=== PATIENT | male | born 1970 | race Caucasian/White ===

== ENCOUNTER 2016-11-05 09:42 | Emergency (ER) | payer OTHER ==
[2016-11-05] MEDS ORDERED: Fluor-I-Strip/Ful-Flo OP ONE ×2 (09:55→10:00)
[2016-11-05] MEDS ORDERED: Tetcaine HCl OPHTHALMIC OP ONE ×2 (09:55→10:00)
[2016-11-05] MEDS ORDERED: Eye-Stream Solution ONE (09:56)
[2016-11-05] MEDS ORDERED: Tobrex EYE DROPS 5 ML OP ONE ×2 (10:00→10:11)
[2016-11-05] MEDS ORDERED: Acular OPTH SOL OP ONE ×2 (10:00→10:11)
--- NOTE | 2016-11-05 10:07 | ERPHSYRPT ---
- History of Present Illness Time Seen by Provider: 11/05/16 09:45 Source: patient Exam Limitations: no limitations Physician History: patient at work working under a car when he accidently got something in his left eye; it was washed out and felt better; he was awakended during the night with pain and d/c from his left eye; no new injury; tetanus current; no fever; some photophobia; no loss of vision; pain increased when closes his eye Timing/Duration: today (increased pain and d/c), yesterday (symptons worse), day (s) (3 onset FB) Location: left eye Severity: severe Apparent Injury: possibly Associated Symptoms: pain, sensitivity to light, redness, matting, eyelid swelling, foreign body sensation Visual Assistive Devices: None Chemical Exposure: No Trauma: No Welding Arc/Tanning Bed Exposure: No Allergies/Adverse Reactions: No Known Drug Allergies Allergy (Verified 11/05/16 10:06) Home Medications: Paroxetine HCl [Paxil] 20 mg PO HS 03/05/16 [History] Pramipexole Di-HCl 0.5 mg [Mirapex 0.5 MG Tablet] 0.5 mg PO HS 03/05/16 [ History] Hx Tetanus, Diphtheria Vaccination/Date Given: Yes (up to date) Hx Influenza Vaccination/Date Given: No Hx Pneumococcal Vaccination/Date Given: No - Review of Systems Constitutional: No Symptoms Eyes: Discharge, Eye Pain, Eye Redness, Photophobia, Tearing, Foreign Body Sensation Ears, Nose, & Throat: No Symptoms Respiratory: No Cough, No Dyspnea, No Wheezing Cardiac: No Chest Pain, No Edema, No Palpitations Abdominal/Gastrointestinal: No Abdominal Pain, No Nausea, No Vomiting Genitourinary Symptoms: No Symptoms Musculoskeletal: No Symptoms Skin: No Symptoms Neurological: No Symptoms Psychological: No Symptoms - Past Medical History Pertinent Past Medical History: Yes Psycho-Social History: Anxiety, Depression Other Medical History: restless leg syndrome - Past Surgical History Past Surgical History: Yes Musculoskeletal: Orthopedic Surgery Other Surgical History: back surgery - Social History Smoking Status: Current every day smoker How long have you smoked: 30 Exposure to second hand smoke: No Alcohol Use: Socially Drug Use: none Patient Lives Alone: Yes Significant Family History: no pertinent family hx - Nursing Vital Signs Nursing Vital Signs: Initial Vital Signs Temperature 98.3 F Temperature Source Oral Pulse Rate 84 Respiratory Rate 16 Blood Pressure [Right Arm] 130/75 Pain Intensity 8 - Physical Exam General Appearance: moderate distress, alert Vision Acuity Degree Evaluation Phase: Corrected Vision Acuity Right Eye: 20/20 Vision Acuity Left Eye: 20/30 Eye Exam: right eye: normal inspection, left eye: conjunctival inflammation, erythema, exudate, eyelid inflammation, bilateral eye: PERRL, EOMI Ears, Nose, Throat Exam: normal ENT inspection, TMs normal, pharynx normal, moist mucous membranes Neck Exam: normal inspection, non-tender, supple, full range of motion, No meningismus, No JVD Extremity Exam: normal inspection, normal range of motion Neurologic: alert, oriented x 3, cooperative, laboratory machinist II-XII nml as tested, normal mood/affect, nml cerebellar function, nml station & gait Skin Exam: normal color, warm, dry Procedures - Eye Procedure Tetracaine Drops Administered: Yes Eye FB Removal: removal w/ cotton swab Remaining Material after FB Removal: none Eye Irrigated w/ Saline (ccs): 10 Antibiotic Oinment/Drps Admin: left eye Progress: improved; no uptake of stain - Course Nursing assessment & vital signs reviewed: Yes Ordered Tests: Active Orders 24 hr Category Date Time Status Re-Check Vital Signs STAT Care 11/05/16 10:00 Active Visual Acuity STAT Care 11/05/16 10:00 Active Medication Summary Discontinued Medications Generic Name Dose Route Start Last Admin Trade Name Adin PRN Reason Stop Dose Admin Eye Irrigation Solution Confirm 11/05/16 09:56 Eye-Stream Solution Administered 11/05/16 09:57 Dose 30 ml .ROUTE .STK-MED ONE Fluorescein Sodium Confirm 11/05/16 09:55 Tzmdm-A-Dklid/Ful-Chris Administered 11/05/16 09:56 Dose 1 mg OP .STK-MED ONE Fluorescein Sodium 1 mg 11/05/16 10:00 11/05/16 10:15 Bskbk-T-Xbieo/Ful-Chris OP 11/05/16 10:01 1 mg STAT ONE Administration Ketorolac Tromethamine 5 ml 11/05/16 10:00 11/05/16 10:21 Acular Opth Kristen OP 11/05/16 10:01 5 ml STAT ONE Administration Ketorolac Tromethamine Confirm 11/05/16 10:11 Acular Opth Kristen Administered 11/05/16 10:12 Dose 5 ml OP .STK-MED ONE Tetracaine HCl Confirm 11/05/16 09:55 Tetcaine Hcl Ophthalmic Administered 11/05/16 09:56 Dose 2 ml OP .STK-MED ONE Tetracaine HCl 2 ml 11/05/16 10:00 11/05/16 10:15 Tetcaine Hcl Ophthalmic OP 11/05/16 10:01 2 ml STAT ONE Administration Tobramycin Sulfate 5 ml 11/05/16 10:00 11/05/16 10:14 Tobrex Eye Drops 5 Ml OP 11/05/16 10:01 5 ml STAT ONE Administration Tobramycin Sulfate Confirm 11/05/16 10:11 Tobrex Eye Drops 5 Ml Administered 11/05/16 10:12 Dose 5 ml OP .STK-MED ONE - Progress Progress: improved (after meds) Progress Note: 11/05/16 10:06 eye numbed; stained; no uptake; lids everted; no gross FB seen; swept with q tip ; irrigated; ATBs adn pain meds given; visual acuity pending 11/05/16 10:27 patient given eye drops with treatment plan and instructions Counseled pt/family regarding: diagnosis, need for follow-up - Departure Time of Disposition: 10:28 Departure Disposition: Home Clinical Impression: Acute conjunctivitis, left eye Condition: Stable Critical Care Time: No Referrals: MARIIA MARR, [Primary Care Provider] - Instructions: Eye Pain, Get a Foreign Body Out of Your Eye Additional Instructions: Tobrex Opthalmic drops apply 2 drops to left eye three times a day for 5 days ketoralac eye ddrops apply 2 drops left eye every 8 hrs as needed for 2-3 days avoid bright light and wind follow up with lmd as needed Follow-up with family doctor as directed. Call for appointment. Return if any problems. If you smoke please stop. Call or follow up with your family doctor for assistance if you need it to stop. Please wear your seatbelt when driving. Have a nice day. Thank you for allowing us to participate in your care today. :o) Dr Maximo Chávez
[2016-11-05 10:39] VITALS: O2SAT 96
[2016-11-05 11:04] VITALS: BP 131/72; PULSE 81
[2016-11-05] MEDS ORDERED: Eye-Stream Solution OP ONE (12:58)
== END 2016-11-05 11:04 | disposition home or self-care (01) ==
LOC: ED 09:42
DX: H10.32 Unspecified acute conjunctivitis, left eye (principal); X58.XXXA Exposure to other specified factors, initial encounter; Y92.59 Other trade areas as the place of occurrence of the external cause
CPT/HCPCS: 80307; 99283

== ENCOUNTER 2017-01-03 01:04 | Observation (INO) | payer OTHER ==
[2017-01-03] MEDS ORDERED: Sodium Chloride 0.9% 1000 ML 1,000 ML IV STA (01:39)
[2017-01-03] MEDS ORDERED: DUONEB 0.5-3 MG/3 ml Neb IH ONE ×2 (01:44→01:51)
--- NOTE | 2017-01-03 01:44 | ERPHSYRPT ---
- History of Present Illness Time Seen by Provider: 01/03/17 01:25 Source: patient Exam Limitations: clinical condition Physician History: PATIENT COMPLAINS OF FEELING DEPRESSED STATING HE WANTS TO GO ASLEEP, INGESTED 10 TABLETS MIRAPEX AND 10 TABLETS PAXIL WITH ALCOHOL PRIOR TO ARRIVAL. PATIENT ALSO COMPLAINS OF A PRODUCTIVE WITH CHEST CONGESTION. RECENTLY TREATED FOR BRONCHITIS WITH STEROIDS AND ANTIBIOTIC ZITHROMAX. Severity of Symptoms-Max: moderate Severity of Symptoms-Current: moderate Suicidal thoughts: ingestion Associated Symptoms: frustrated, ingestion Previous symptoms: same symptoms as today, other (previous overdose with pills in the past) Allergies/Adverse Reactions: No Known Drug Allergies Allergy (Verified 11/05/16 10:06) Home Medications: Paroxetine HCl [Paxil] 20 mg PO HS 03/05/16 [History] Pramipexole Di-HCl 0.5 mg [Mirapex 0.5 MG Tablet] 0.5 mg PO HS 03/05/16 [ History] Hx Tetanus, Diphtheria Vaccination/Date Given: Yes (up to date) Hx Influenza Vaccination/Date Given: No Hx Pneumococcal Vaccination/Date Given: No - Past Medical History Pertinent Past Medical History: Yes Psycho-Social History: Anxiety, Depression Other Medical History: restless leg syndrome - Past Surgical History Past Surgical History: Yes Musculoskeletal: Orthopedic Surgery Other Surgical History: back surgery - Social History Smoking Status: Current every day smoker How long have you smoked: 30 Exposure to second hand smoke: No Alcohol Use: Socially Drug Use: none Patient Lives Alone: Yes Significant Family History: no pertinent family hx - Review of Systems Constitutional: No Fever, No Chills Eyes: No Symptoms Ears, Nose, & Throat: No Symptoms Respiratory: Cough, No Dyspnea Cardiac: No Symptoms, No Chest Pain, No Edema, No Syncope Abdominal/Gastrointestinal: No Symptoms, No Abdominal Pain, No Nausea, No Vomiting, No Diarrhea Genitourinary Symptoms: No Symptoms, No Dysuria Musculoskeletal: No Symptoms, No Back Pain, No Neck Pain Skin: No Symptoms, No Rash Neurological: No Dizziness, No Focal Weakness, No Sensory Changes Psychological: No Symptoms Endocrine: No Symptoms All Other Systems: Reviewed and Negative - Nursing Vital Signs Nursing Vital Signs: Initial Vital Signs Pulse Rate 84 Respiratory Rate 16 Blood Pressure [] 134/83 Pain Intensity 0 - Physical Exam General Appearance: no apparent distress Eyes, Ears, Nose, Throat Exam: normal ENT inspection, moist mucous membranes Neck Exam: normal inspection, non-tender, supple Respiratory Exam: normal breath sounds, lungs clear, No respiratory distress Cardiovascular Exam: regular rate/rhythm, No edema Gastrointestinal/Abdominal Exam: soft, No tenderness, No distention Extremities Exam: normal inspection, normal range of motion, No evidence of injury, No edema Peripheral Pulses: carotid (R): 2+, carotid (L): 2+, femoral (R): 2+, femoral (L ): 2+, dorsalis-pedis (R): 2+, dorsalis-pedis (L): 2+ Current Suicidality: denies suicide plan Neurological Exam: alert, certified optician II-XII nml as tested, oriented x 3 Appearance: appropriate appearance, appropriate insight Behavior/Eye Contact/Speech: alert & cooperative Skin Exam: normal color, warm, dry, No rash SpO2: 98 Oxygen Delivery: Room Air - Course EKG Interpreted by Me: RATE, Sinus Rhythm, NORMAL AXIS - Radiology Exams Chest X-ray Interpretation: Reviewed by me, Teleradiologist Report Ordered Tests: Active Orders 24 hr Category Date Time Status Up With Assistance ROUTINE Activity 01/03/17 03:47 Active Admission/Status Order ROUTINE Care 01/03/17 03:37 Active Call Admit Doctor for Orders ON ADMISSION Care 01/03/17 03:43 Active Floral Specialist STAT Care 01/03/17 01:39 Active Code Status Order ROUTINE Care 01/03/17 03:37 Active Code Status Order ROUTINE Care 01/03/17 03:47 Active EKG-ER Only STAT Care 01/03/17 01:39 Active IV Care Q6H Care 01/03/17 03:37 Active IV Insertion STAT Care 01/03/17 01:39 Active Neuro Checks Q4H Care 01/03/17 03:47 Active Pulse Oximetry (ED) STAT Care 01/03/17 01:39 Active Vital Signs Q4H Care 01/03/17 03:37 Active Low Sodium Diet 01/03/17 Breakfast Active CHEST 1 VIEW (PORTABLE) Stat Exams 01/03/17 01:40 Taken ACETAMINOPHEN Stat Lab 01/03/17 01:59 Completed ACETAMINOPHEN Stat Lab 01/03/17 03:37 Received BLOOD CULTURE Stat Lab 01/03/17 02:04 Received CBC W DIFF Stat Lab 01/03/17 01:59 Completed CMP Stat Lab 01/03/17 01:59 Completed Ethyl Alcohol,Urine Stat Lab 01/03/17 01:59 Completed Manual Differential NC Stat Lab 01/03/17 01:59 Completed SALICYLATE Stat Lab 01/03/17 01:59 Completed SALICYLATE Stat Lab 01/03/17 03:37 Received UA W/ MICROSCOPIC Stat Lab 01/03/17 02:04 Completed Urine Triage Profile Stat Lab 01/03/17 02:04 Completed Oxygen NASAL CANNULA 2 lpm RT 01/03/17 03:47 Active Pulse Oximetry CONTINUOUS RT 01/03/17 03:48 Active Respiratory Nebulizer STAT RT 01/03/17 01:44 Completed Transfer Order Routine Transfer 01/03/17 03:36 Ordered Medication Summary Generic Name Dose Route Start Last Admin Trade Name Freq PRN Reason Stop Dose Admin Acetaminophen 650 mg 01/03/17 03:47 Tylenol 325 Mg PO 02/02/17 03:46 Q4H PRN PRN PAIN AND/OR FEVER Albuterol/Ipratropium 3 ml 01/03/17 03:47 Duoneb 0.5-3 Mg/3 Ml Neb IH 02/02/17 03:46 Q4HPRN PRN SHORTNESS OF BREATH/WHEEZING Famotidine 20 mg 01/03/17 10:00 Pepcid 20 Mg Vial IV 02/02/17 09:59 Q12HT [place] Ceftriaxone Sodium/Dextrose 50 mls @ 100 mls/hr 01/03/17 10:00 Rocephin 1 Gm-D5w 50 Ml Bag IV 02/02/17 09:59 Q24H10 [place] Sodium Chloride 1,000 mls @ 100 mls/hr 01/03/17 03:45 Sodium Chloride 0.9% 1000 Ml IV 02/02/17 03:44 .Q10H [place] Ceftriaxone Sodium/Dextrose 50 mls @ 100 mls/hr 01/03/17 03:52 Rocephin 1 Gm-D5w 50 Ml Bag IV 01/03/17 04:21 STAT ONE Discontinued Medications Generic Name Dose Route Start Last Admin Trade Name Freq PRN Reason Stop Dose Admin Albuterol/Ipratropium 3 ml 01/03/17 01:44 01/03/17 01:51 Duoneb 0.5-3 Mg/3 Ml Neb IH 01/03/17 01:45 3 ml STAT ONE Administration Albuterol/Ipratropium Confirm 01/03/17 01:51 Duoneb 0.5-3 Mg/3 Ml Neb Administered 01/03/17 01:52 Dose 3 ml IH .STK-MED ONE Sodium Chloride 1,000 mls @ 999 mls/hr 01/03/17 01:39 01/03/17 02:15 Sodium Chloride 0.9% 1000 Ml IV 01/03/17 02:39 999 mls/hr .Q1H1M STA Administration Sodium Chloride Confirm 01/03/17 02:11 Sodium Chloride 0.9% 1000 Ml Administered 01/03/17 02:12 Dose 1,000 mls @ ud .ROUTE .STK-MED ONE Ceftriaxone Sodium/Dextrose Confirm 01/03/17 03:48 Rocephin 1 Gm-D5w 50 Ml Bag Administered 01/03/17 03:49 Dose 50 mls @ ud IV .STK-MED ONE Lab/Rad Data: Laboratory Result Diagrams 01/03/17 01:59 01/03/17 01:59 Laboratory Results 01/03/17 01/03/17 01/03/17 Range/Units 02:04 02:04 01:59 WBC (4.0-10.5) K/mm3 RBC (4.1-5.6) M/mm3 Hgb (12.5-18.0) gm/dl Hct (42-50) % MCV (78-100) fl MCH (26-32) pg MCHC (32-36) g/dl RDW (11.5-14.0) % Plt Count (150-450) K/mm3 MPV (6-9.5) fl Segmented Neutrophils (36.-66.) % Lymphocytes (Manual) (24-44) % Monocytes (Manual) (0.0-12.0) % Eosinophils (Manual) (0.00-3.0) % Basophils (Manual) (0.0-1.0) % Differential Comment Atypical Lymphocytes % Platelet Estimate (NORMAL) Sodium (136-145) mEq/L Potassium (3.5-5.1) mEq/L Chloride (98-107) mEq/L Carbon Dioxide (21-32) mEq/L Anion Gap (5-15) MEQ/L BUN (9-20) mg/dL Creatinine (0.55-1.30) mg/dl Estimated GFR ML/MIN Glucose (70-110) MG/DL Calcium (8.5-10.1) mg/dL Total Bilirubin (0.2-1.0) mg/dL AST (15-37) U/L ALT (12-78) U/L Alkaline Phosphatase (46-116) U/L Serum Total Protein (6.4-8.2) gm/dL Albumin (3.4-5.0) g/dL Ur Collection Type VOID Urine Color YELLOW (YELLOW) Urine Appearance CLEAR (CLEAR) Ur Specific [place] 1.020 (1.005-1.025) Urine Protein NEGATIVE (Negative) Urine Glucose (UA) NEGATIVE (NEGATIVE) mg/dL Urine Ketones NEGATIVE (NEGATIVE) Urine Nitrite NEGATIVE (NEGATIVE) Urine Bilirubin NEGATIVE (NEGATIVE) Urine Urobilinogen 0.2 (0-1) mg/dL Urine WBC (Auto) NEGATIVE (NEGATIVE) Urine RBC (Auto) TRACE-LYSED (0-5) Andrew/ul Urine Microscopic RBC 2-5 (0-2) /HPF Urine Microscopic WBC 0-2 (0-5) /HPF Ur Epithelial Cells RARE (FEW) /HPF Urine Bacteria RARE (NEGATIVE) /HPF Salicylates (2.8-20.0) mg/dl Urine Opiates Level NEG. (NEGATIVE) Ur Methadone NEG. (NEGATIVE) Acetaminophen (10-30) ug/ml Urine Barbiturates NEG. (NEGATIVE) Ur Phencyclidine (PCP) NEG. (NEGATIVE) Urine Amphetamine NEG. (NEGATIVE) U Benzodiazepine Level NEG. (NEGATIVE) Urine Cocaine NEG. (NEGATIVE) Urine Marijuana (THC) POS. (NEGATIVE) Urine pH 5.5 5.5 (3-8.5) Urine Ethyl Alcohol < 3 (0.00-20) mg/dl Specimen Received 01/03/17 0130 01/03/17 01/03/17 Range/Units 01:59 01:59 WBC 12.5 H (4.0-10.5) K/mm3 RBC 5.64 H (4.1-5.6) M/mm3 Hgb 16.4 (12.5-18.0) gm/dl Hct 48.7 (42-50) % MCV 86.3 (78-100) fl MCH 29.0 (26-32) pg MCHC 33.7 (32-36) g/dl RDW 14.7 H (11.5-14.0) % Plt Count 198 (150-450) K/mm3 MPV 9.5 (6-9.5) fl Segmented Neutrophils 65 (36.-66.) % Lymphocytes (Manual) 15 L (24-44) % Monocytes (Manual) 4 (0.0-12.0) % Eosinophils (Manual) 3 (0.00-3.0) % Basophils (Manual) 1 (0.0-1.0) % Differential Comment NORMAL Atypical Lymphocytes 12 % Platelet Estimate NORMAL (NORMAL) Sodium 143 (136-145) mEq/L Potassium 3.8 (3.5-5.1) mEq/L Chloride 108 H (98-107) mEq/L Carbon Dioxide 25.3 (21-32) mEq/L Anion Gap 13.8 (5-15) MEQ/L BUN 15 (9-20) mg/dL Creatinine 0.98 (0.55-1.30) mg/dl Estimated GFR > 60 ML/MIN Glucose 108 (70-110) MG/DL Calcium 8.3 L (8.5-10.1) mg/dL Total Bilirubin 0.2 (0.2-1.0) mg/dL AST 34 (15-37) U/L ALT 61 (12-78) U/L Alkaline Phosphatase 99 (46-116) U/L Serum Total Protein 7.2 (6.4-8.2) gm/dL Albumin 3.7 (3.4-5.0) g/dL Ur Collection Type Urine Color (YELLOW) Urine Appearance (CLEAR) Ur Specific [place] (1.005-1.025) Urine Protein (Negative) Urine Glucose (UA) (NEGATIVE) mg/dL Urine Ketones (NEGATIVE) Urine Nitrite (NEGATIVE) Urine Bilirubin (NEGATIVE) Urine Urobilinogen (0-1) mg/dL Urine WBC (Auto) (NEGATIVE) Urine RBC (Auto) (0-5) Andrew/ul Urine Microscopic RBC (0-2) /HPF Urine Microscopic WBC (0-5) /HPF Ur Epithelial Cells (FEW) /HPF Urine Bacteria (NEGATIVE) /HPF Salicylates 3.4 (2.8-20.0) mg/dl Urine Opiates Level (NEGATIVE) Ur Methadone (NEGATIVE) Acetaminophen < 2.0 L (10-30) ug/ml Urine Barbiturates (NEGATIVE) Ur Phencyclidine (PCP) (NEGATIVE) Urine Amphetamine (NEGATIVE) U Benzodiazepine Level (NEGATIVE) Urine Cocaine (NEGATIVE) Urine Marijuana (THC) (NEGATIVE) Urine pH (3-8.5) Urine Ethyl Alcohol (0.00-20) mg/dl Specimen Received - Progress Progress Note: 01/03/17 03:POISON CONTROL CALLED, PATIENT GIVEN IV FLUID BOLUS 1 LITER, BOLUS, GIVEN ROCEPHIN 1GM IVPB AND DUO NEB AEROSOL TX 01/03/17 03:16 Discussed with : Osmar Monaco Will see patient in: hospital (observation) (AT 0320 FOR ICU OBSERVATION) - Departure Time of Disposition: 03:45 Departure Disposition: Observation Clinical Impression: ATTEMPTED DRUG OVERDOSE, MAJOR DEPRESSION, ACUTE BRONCHITIS Condition: Stable Critical Care Time: No Referrals: MARIIA MARR DO [Primary Care Provider] -
[2017-01-03 02:02] LABS: Mean Cell Volume 86.3 fl (78-100); Mean Platelet Volume 9.5 fl (6-9.5); Platelet Count 198 K/mm3 (150-450); Red Blood Count 5.64 M/mm3 (4.1-5.6); Red Cell Distribution Width 14.7 % (11.5-14.0); White Blood Count 12.5 K/mm3 (4.0-10.5)
[2017-01-03] MEDS ORDERED: Sodium Chloride 0.9% 1000 ML 1,000 ML ONE (02:11)
[2017-01-03 02:22] LABS: ALBUMIN 3.7 g/dL (3.4-5.0); ALKALINE PHOSPHATASE 99 U/L (46-116); ANION GAP 13.8 MEQ/L (5-15); BILIRUBIN,TOTAL 0.2 mg/dL (0.2-1.0); BLOOD UREA NITROGEN 15 mg/dL (9-20); CHLORIDE 108 mEq/L (98-107); Carbon Dioxide 25.3 mEq/L (21-32); Glucose 108 MG/DL (70-110); Potassium 3.8 mEq/L (3.5-5.1); SGOT/AST 34 U/L (15-37); SGPT/ALT 61 U/L (12-78); SODIUM 143 mEq/L (136-145); Total Protein 7.2 gm/dL (6.4-8.2)
[2017-01-03 02:23] LABS: Bacteria RARE /HPF (NEGATIVE); COMPLETE URINE MICROSCOPIC? YES; Collection Type VOID; Epithelial Cells RARE /HPF (FEW); Ph 5.5 (5-6); WBC 0-2 /HPF (0-5)
[2017-01-03 02:24] LABS: ACETAMINOPHEN < 2.0 ug/ml (10-30)
[2017-01-03 02:55] LABS: ATYPICAL LYMPHS 12 %; Basophil 1 % (0.0-1.0); Eosinophil 3 % (0.00-3.0); Platelet Estimate NORMAL (NORMAL); Total Cells Counted 100
[2017-01-03] MEDS ORDERED: Sodium Chloride 0.9% 1000 ML 1,000 ML IV SCH (03:45)
[2017-01-03] MEDS ORDERED: DUONEB 0.5-3 MG/3 ml Neb IH PRN (03:47)
[2017-01-03] MEDS ORDERED: TYLENOL 325 MG PO PRN (03:47)
[2017-01-03] MEDS ORDERED: ROCEPHIN 1 Gm-D5w 50 ml Bag** 50 ML IV ONE ×2 (03:48→03:52)
[2017-01-03 04:01] LABS: ACETAMINOPHEN < 2.0 ug/ml (10-30)
[2017-01-03] MEDS ORDERED: Zofran 4 MG/2 ML VIAL IV PRN (07:46)
--- NOTE | 2017-01-03 08:51 | XRAY ---
Indication: Cough. Comparison: None Portable chest slightly underinflated crowding the lung bases. Remaining heart, lungs, and bony thorax unremarkable.
[2017-01-03] MEDS ORDERED: Pepcid 20 MG VIAL IV SCH (10:00)
[2017-01-03 12:58] VITALS: BP 135/78; PULSE 87; O2SAT 97
--- NOTE | 2017-01-03 13:20 | PCM.SSS ---
History of Present Illness - Chief Complaint Chief Complaint: Shortness of Breath for 1 day and took 10 mirapex and 10 paxil History of Present Illness: Mr.COX ACOSTA is a 46 year old male.PATIENT COMPLAINS OF FEELING DEPRESSED STATING HE WANTS TO GO ASLEEP, INGESTED 10 TABLETS MIRAPEX AND 10 TABLETS PAXIL WITH ALCOHOL PRIOR TO ARRIVAL. PATIENT ALSO COMPLAINS OF A PRODUCTIVE WITH CHEST CONGESTION. RECENTLY TREATED FOR BRONCHITIS WITH STEROIDS AND ANTIBIOTIC ZITHROMAX. - Review of Systems Constitutional: No Fever, No Chills Eyes: No Symptoms Ears, Nose, & Throat: No Symptoms Respiratory: No Cough, No Short Of Breath Cardiac: No Chest Pain, No Edema, No Syncope Abdominal/Gastrointestinal: No Abdominal Pain, No Nausea, No Vomiting, No Diarrhea Genitourinary Symptoms: No Dysuria Musculoskeletal: No Back Pain, No Neck Pain Skin: No Symptoms, No Rash Neurological: No Dizziness, No Focal Weakness, No Sensory Changes Psychological: Anxiety, Depression Endocrine: No Symptoms Hematologic/Lymphatic: No Symptoms Immunological/Allergic: No Symptoms Medications & Allergies Home Medications: Home Medication List Paroxetine HCl [Paxil] 20 mg PO HS 03/05/16 [History Confirmed 01/03/17] Pramipexole Di-HCl 0.5 mg [Mirapex 0.5 MG Tablet] 0.5 mg PO HS 03/05/16 [ History Confirmed 01/03/17] Allergies/Adverse Reactions: Allergies Allergy/AdvReac Type Severity Reaction Status Date / Time No Known Drug Allergies Allergy Verified 11/05/16 10:06 - Past Medical History Past Medical History: Yes Pyscho-Social History: Anxiety, Depression Comment: restless leg syndrome - Past Surgical History Past Surgical History: Yes Neuro Surgical History: No Pertinent History Cardiac History: No Pertinent History Respiratory Surgery: No Pertinent History GI Surgical History: No Pertinent History Genitourinary Surgical Hx: No Pertinent History Musculskeletal Surgical Hx: Orthopedic Surgery Male Surgical History: No Pertinent History Other Surgical History: back surgery - Social History Smoking Status: Current every day smoker How long have you smoked: 29 years Exposure to second hand smoke: Yes Alcohol: None Drug Use: none Significant Family History: no pertinent family hx - Physical Exam Vital Signs: Vital Signs - 24 hr Temp Pulse Resp BP Pulse Ox 01/03/17 12:00 98.1 F 87 18 135/78 97 01/03/17 08:00 98.0 F 93 H 18 149/94 98 01/03/17 04:30 88 19 97 01/03/17 04:17 97.4 F 92 H 19 130/90 96 General Appearance: no apparent distress, alert Neurologic Exam: alert, oriented x 3, cooperative, normal mood/affect, nml cerebellar function, nml station & gait, sensation nml, No motor deficits Eye Exam: PERRL/EOMI, eyes nml inspection Ears, Nose, Throat Exam: normal ENT inspection, TMs normal, pharynx normal, moist mucous membranes Neck Exam: normal inspection, non-tender, supple, full range of motion Respiratory Exam: normal breath sounds, lungs clear, No respiratory distress Cardiovascular Exam: regular rate/rhythm, normal heart sounds, normal peripheral pulses Gastrointestinal/Abdomen Exam: soft, normal bowel sounds, No tenderness, No mass Back Exam: normal inspection, normal range of motion, No CVA tenderness, No vertebral tenderness Extremity Exam: normal inspection, normal range of motion, pelvis stable Skin Exam: normal color, warm, dry, No rash Lymphatic Exam: No adenopathy Results - Other Procedures and Tests Respiratory Therapy 01/03/17 03:47 Oxygen NASAL CANNULA 2 lpm 01/03/17 04:34 Respiratory Nebulizer Assessment/Plan (1) Major depression Current Visit: Yes Status: Chronic Qualifiers: Major depression recurrence: recurrent Active/Remission status: currently active Psychotic features: without psychotic features Code(s): F32.9 - MAJOR DEPRESSIVE DISORDER, SINGLE EPISODE, UNSPECIFIED (2) Suicide attempt by multiple drug overdose Current Visit: Yes Status: Acute Qualifiers: Encounter type: initial encounter Qualified Code(s): T50.902A - Poisoning by unspecified drugs, medicaments and biological substances, intentional self- harm, initial encounter Code(s): T50.902A - POISONING BY UNSP DRUG/MEDS/BIOL SUBST, SELF-HARM, INIT Hospital Summary - Hospital Course Hospital Course: Chief Complaint Diagnosis Shortness of Breath Allergies Allergy/AdvReac Type Severity Reaction Status Date / Time No Known Drug Allergies Allergy Verified 11/05/16 10:06 Vital Signs (Last 24 hours) Temp Pulse Resp BP Pulse Ox 01/03/17 12:00 98.1 F 87 18 135/78 97 01/03/17 08:00 98.0 F 93 H 18 149/94 98 01/03/17 04:30 88 19 97 01/03/17 04:17 97.4 F 92 H 19 130/90 96 01/03/17 03:53 98 01/03/17 02:53 84 16 134/83 94 L 01/03/17 02:19 94 L 01/03/17 02:18 84 16 140/78 94 L 01/03/17 01:51 84 17 96 01/03/17 01:36 88 16 140/86 98 Current Medications Generic Name Dose Route Start Last Admin Trade Name Freq PRN Reason Stop Dose Admin Acetaminophen 650 mg 01/03/17 03:47 Tylenol 325 Mg PO 02/02/17 03:46 Q4H PRN PRN PAIN AND/OR FEVER Albuterol/Ipratropium 3 ml 01/03/17 03:47 Duoneb 0.5-3 Mg/3 Ml Neb IH 02/02/17 03:46 Q4HPRN PRN SHORTNESS OF BREATH/WHEEZING Famotidine 20 mg 01/03/17 10:00 01/03/17 11:16 Pepcid 20 Mg Vial IV 02/02/17 09:59 20 mg Q12HT KELTON Administration Ceftriaxone Sodium/Dextrose 50 mls @ 100 mls/hr 01/03/17 22:00 Rocephin 1 Gm-D5w 50 Ml Bag IV 02/02/17 21:59 Q24H22 KELTON Sodium Chloride 1,000 mls @ 100 mls/hr 01/03/17 03:45 01/03/17 05:41 Sodium Chloride 0.9% 1000 Ml IV 02/02/17 03:44 100 mls/hr .Q10H KELTON Administration Ondansetron HCl 4 mg 01/03/17 07:46 01/03/17 08:06 Zofran 4 Mg/2 Ml Vial IV 02/02/17 07:45 4 mg Q6H PRN PRN Administration NAUSEA/VOMITING Discontinued Medications Generic Name Dose Route Start Last Admin Trade Name Freq PRN Reason Stop Dose Admin Albuterol/Ipratropium 3 ml 01/03/17 01:44 01/03/17 01:51 Duoneb 0.5-3 Mg/3 Ml Neb IH 01/03/17 01:45 3 ml STAT ONE Administration Albuterol/Ipratropium Confirm 01/03/17 01:51 Duoneb 0.5-3 Mg/3 Ml Neb Administered 01/03/17 01:52 Dose 3 ml IH .STK-MED ONE Sodium Chloride 1,000 mls @ 999 mls/hr 01/03/17 01:39 01/03/17 02:15 Sodium Chloride 0.9% 1000 Ml IV 01/03/17 02:39 999 mls/hr .Q1H1M STA Administration Sodium Chloride Confirm 01/03/17 02:11 Sodium Chloride 0.9% 1000 Ml Administered 01/03/17 02:12 Dose 1,000 mls @ ud .ROUTE .STK-MED ONE Ceftriaxone Sodium/Dextrose Confirm 01/03/17 03:48 Rocephin 1 Gm-D5w 50 Ml Bag Administered 01/03/17 03:49 Dose 50 mls @ ud IV .STK-MED ONE Ceftriaxone Sodium/Dextrose 50 mls @ 100 mls/hr 01/03/17 03:52 01/03/17 03:56 Rocephin 1 Gm-D5w 50 Ml Bag IV 01/03/17 04:21 100 mls/hr STAT ONE Administration Intake & Output (Last 24 hours) 01/01/17 01/02/17 01/03/17 01/04/17 11:59 11:59 11:59 11:59 Intake Total 450 Output Total 300 Balance 150 Weight 91.1 kg Microbiology Results (Last 24 hours) 01/03/17 02:04 Blood - Pending 01/03/17 02:04 Blood Blood Culture - Pending 01/03/17 01:59 Blood - Pending 01/03/17 01:59 Blood Blood Culture - Pending Laboratory Results (Last 24 hours) 01/03/17 01/03/17 01/03/17 03:37 02:04 02:04 WBC RBC Hgb Hct MCV MCH MCHC RDW Plt Count MPV Segmented Neutrophils Lymphocytes (Manual) Monocytes (Manual) Eosinophils (Manual) Basophils (Manual) Differential Comment Atypical Lymphocytes Platelet Estimate Sodium Potassium Chloride Carbon Dioxide Anion Gap BUN Creatinine Estimated GFR Glucose Calcium Total Bilirubin AST ALT Alkaline Phosphatase Serum Total Protein Albumin Ur Collection Type VOID Urine Color YELLOW Urine Appearance CLEAR Ur Specific [place] 1.020 Urine Protein NEGATIVE Urine Glucose (UA) NEGATIVE Urine Ketones NEGATIVE Urine Nitrite NEGATIVE Urine Bilirubin NEGATIVE Urine Urobilinogen 0.2 Urine WBC (Auto) NEGATIVE Urine RBC (Auto) TRACE-LYSED Urine Microscopic RBC 2-5 Urine Microscopic WBC 0-2 Ur Epithelial Cells RARE Urine Bacteria RARE Salicylates 3.0 Urine Opiates Level NEG. Ur Methadone NEG. Acetaminophen < 2.0 L Urine Barbiturates NEG. Ur Phencyclidine (PCP) NEG. Urine Amphetamine NEG. U Benzodiazepine Level NEG. Urine Cocaine NEG. Urine Marijuana (THC) POS. Urine pH 5.5 Urine Ethyl Alcohol Specimen Received 01/03/17 0130 01/03/17 01/03/17 01/03/17 01:59 01:59 01:59 WBC 12.5 H RBC 5.64 H Hgb 16.4 Hct 48.7 MCV 86.3 MCH 29.0 MCHC 33.7 RDW 14.7 H Plt Count 198 MPV 9.5 Segmented Neutrophils 65 Lymphocytes (Manual) 15 L Monocytes (Manual) 4 Eosinophils (Manual) 3 Basophils (Manual) 1 Differential Comment NORMAL Atypical Lymphocytes 12 Platelet Estimate NORMAL Sodium 143 Potassium 3.8 Chloride 108 H Carbon Dioxide 25.3 Anion Gap 13.8 BUN 15 Creatinine 0.98 Estimated GFR > 60 Glucose 108 Calcium 8.3 L Total Bilirubin 0.2 AST 34 ALT 61 Alkaline Phosphatase 99 Serum Total Protein 7.2 Albumin 3.7 Ur Collection Type Urine Color Urine Appearance Ur Specific [place] Urine Protein Urine Glucose (UA) Urine Ketones Urine Nitrite Urine Bilirubin Urine Urobilinogen Urine WBC (Auto) Urine RBC (Auto) Urine Microscopic RBC Urine Microscopic WBC Ur Epithelial Cells Urine Bacteria Salicylates 3.4 Urine Opiates Level Ur Methadone Acetaminophen < 2.0 L Urine Barbiturates Ur Phencyclidine (PCP) Urine Amphetamine U Benzodiazepine Level Urine Cocaine Urine Marijuana (THC) Urine pH 5.5 Urine Ethyl Alcohol < 3 Specimen Received Orders (Last 24 hours) Category Date Time Status Up With Assistance ROUTINE Activity 01/03/17 03:47 Active Admission/Status Order ROUTINE Care 01/03/17 03:37 Active Call Admit Doctor for Orders ON ADMISSION Care 01/03/17 03:43 Active Yarn Dumper STAT Care 01/03/17 01:39 Active Code Status Order ROUTINE Care 01/03/17 03:37 Active Code Status Order ROUTINE Care 01/03/17 03:47 Active EKG-ER Only STAT Care 01/03/17 01:39 Completed IV Care Q6H Care 01/03/17 03:37 Active IV Insertion STAT Care 01/03/17 01:39 Completed Neuro Checks Q4H Care 01/03/17 03:47 Active Pulse Oximetry (ED) STAT Care 01/03/17 01:39 Active Vital Signs Q4H Care 01/03/17 03:37 Active tele-mental [Psychiatric Evaluation] STAT Care 01/03/17 08:30 Active Low Sodium Diet 01/03/17 Breakfast Active CHEST 1 VIEW (PORTABLE) Stat Exams 01/03/17 01:40 Completed ACETAMINOPHEN Stat Lab 01/03/17 01:59 Completed ACETAMINOPHEN Stat Lab 01/03/17 03:37 Completed BLOOD CULTURE Stat Lab 01/03/17 02:04 Received CBC W DIFF Stat Lab 01/03/17 01:59 Completed CMP Stat Lab 01/03/17 01:59 Completed Ethyl Alcohol,Urine Stat Lab 01/03/17 01:59 Completed Manual Differential NC Stat Lab 01/03/17 01:59 Completed SALICYLATE Stat Lab 01/03/17 01:59 Completed SALICYLATE Stat Lab 01/03/17 03:37 Completed UA W/ MICROSCOPIC Stat Lab 01/03/17 02:04 Completed Urine Triage Profile Stat Lab 01/03/17 02:04 Completed Acetaminophen 325 mg [Tylenol 325 mg] Med 01/03/17 03:47 Active 650 mg PO Q4H PRN PRN Albuterol/Ipratropium 3ml Neb* [DUONEB 0.5-3 MG/3 ml Med 01/03/17 01:51 Discontinued Neb] 3 ml IH .STK-MED ONE Albuterol/Ipratropium 3ml Neb* [DUONEB 0.5-3 MG/3 ml Med 01/03/17 03:47 Active Neb] 3 ml IH Q4HPRN PRN Albuterol/Ipratropium 3ml Neb* [DUONEB 0.5-3 MG/3 ml Med 01/03/17 01:44 Discontinued Neb] 3 ml IH STAT ONE Ceftriaxone 1 GM/50 ML PREMIX* [ROCEPHIN 1 Gm-D5w 50 ml Med 01/03/17 22:00 Active Bag] 50 ml IV Q24H22 Ceftriaxone 1 GM/50 ML PREMIX* [ROCEPHIN 1 Gm-D5w 50 ml Med 01/03/17 03:52 Discontinued Bag] 50 ml IV STAT Ceftriaxone 1 GM/50 ML PREMIX* [ROCEPHIN 1 Gm-D5w 50 ml Med 01/03/17 03:48 Discontinued Bag] 50 ml IV UD Famotidine 20 mg Vial [Pepcid 20 MG VIAL] Med 01/03/17 10:00 Active 20 mg IV Q12HT NaCl 0.9% 1000 ml [Sodium Chloride 0.9% 1000 ML] 1,000 Med 01/03/17 02:11 Discontinued ml .ROUTE UD NaCl 0.9% 1000 ml [Sodium Chloride 0.9% 1000 ML] 1,000 Med 01/03/17 03:45 Active ml IV 100 mls/hr NaCl 0.9% 1000 ml [Sodium Chloride 0.9% 1000 ML] 1,000 Med 01/03/17 01:39 Discontinued ml IV 999 mls/hr Ondansetron HCl 4 mg/2 ml [Zofran 4 MG/2 ML VIAL] Med 01/03/17 07:46 Active 4 mg IV Q6H PRN PRN Oxygen NASAL CANNULA 2 lpm RT 01/03/17 03:47 Active Respiratory Nebulizer RT 01/03/17 04:34 Active Respiratory Nebulizer STAT RT 01/03/17 01:44 Completed Respiratory Therapy Consult ROUTINE RT 01/03/17 04:34 Completed Transfer Order Routine Transfer 01/03/17 03:36 Completed Patient Care Notes (Last 24 hours) 01/03/17 10:00 (created 01/03/17 11:12) Nursing Note by Avani Fan [facility] consult complete Initialized on 01/03/17 11:12 - END OF NOTE - Vitals & Intake/Output Vital Signs: Vital Signs Temperature 98.1 F 01/03/17 12:00 Pulse Rate 87 01/03/17 12:00 Respiratory Rate 18 01/03/17 12:00 Blood Pressure 135/78 01/03/17 12:00 O2 Sat by Pulse Oximetry 97 01/03/17 12:00 Intake & Output: Intake & Output 01/01/17 01/02/17 01/03/17 01/04/17 11:59 11:59 11:59 11:59 Intake Total 450 Output Total 300 Balance 150 Weight 91.1 kg - Lab Result Diagrams: 04/03/17 01:59 01/03/17 01:59 - Procedures and Test Procedures and Tests throughout Hospitalization: Therapy Orders & Screens 01/03/17 03:47 Oxygen NASAL CANNULA 2 lpm Comment: Diagnosis: Shortness of Breath 01/03/17 04:34 Respiratory Nebulizer Comment: DUONEB Q4PRN FOR SOB/WHEEZING Diagnosis: Shortness of Breath Respiratory Therapy Consult ROUTINE Comment: Reason For Exam: Diagnosis: Shortness of Breath - Discharge Discharge Date: 01/03/17 Disposition: Home, Self-Care Condition: Stable Prescriptions: No Action Paroxetine HCl [Paxil] 20 mg PO HS Pramipexole Di-HCl 0.5 mg [Mirapex 0.5 MG Tablet] 0.5 mg PO HS Follow up with: MARIIA MARR DO [Primary Care Provider] - 1 Week
[2017-01-03] MEDS ORDERED: ROCEPHIN 1 Gm-D5w 50 ml Bag** 50 ML IV SCH (22:00)
== END 2017-01-03 15:10 | disposition home or self-care (01) ==
LOC: ED 01:04 → ICU 04:02
PROVIDERS: ADMIT General Practice; ATTEND General Practice
DX: F32.9 Major depressive disorder, single episode, unspecified (principal); T50.902A Poisoning by unspecified drugs, medicaments and biological substances, intentional self-harm, initial encounter
CPT/HCPCS: 36000; 36415; 71010; 80053; 80307; 80320; 81000; 83986; 85025; 87040; 90791; 93005; 93041; 94640; 96360; 99285; G0378; G0481; J0696; J2405; Q3014; A9270-GY